=== PATIENT | female | born 1950 | race Caucasian/White ===

== ENCOUNTER 2023-11-26 20:00 | Emergency (ER) | payer OTHER ==
[2023-11-26 20:04] VITALS: BP 162/108; PULSE 71; RESP 16; TEMP 98; BMI 29.0
[2023-11-26 20:56] LABS: BASO % 0.4 % (0-2.0); EOS % 1.4 % (0-4.5); HEMATOCRIT 37.6 % (32.4-45.2); LYMPH % 29.4 % (8-40); MCH 32.5 pg (25.7-33.7); MCHC 34.6 g/dl (32.0-36.0); MEAN CELL VOLUME 93.7 fl (80-96); MEAN PLT VOLUME 8.3 fl (7.5-11.1); MONO % 10.4 % (3.8-10.2); NEUT % 58.4 % (42.8-82.8); PLATELET COUNT 160 10^3/uL (134-434); RBC 4.02 M/mm3 (3.60-5.2); RDW 13.9 % (11.6-15.6); WHITE BLOOD COUNT 4.6 K/mm3 (4.0-10.0)
[2023-11-26 21:02] LABS: INR 1.08 (0.83-1.09); PROTHROMBIN TIME (PATIENT) 12.5 SEC (9.7-13.0)
[2023-11-26 21:05] LABS: ACTIVATED PTT 31.1 SECONDS (25.2-36.5)
[2023-11-26 21:14] LABS: POTASSIUM 3.8 mmol/L (3.5-5.1)
[2023-11-26 21:16] LABS: ALBUMIN 2.9 g/dl (3.4-5.0); CALCIUM 8.6 mg/dL (8.5-10.1)
[2023-11-26 21:20] LABS: CREATININE 0.9 mg/dL (0.55-1.3)
[2023-11-26 21:21] LABS: BILIRUBIN,TOTAL 0.4 mg/dL (0.2-1); TOT PROT 5.7 g/dl (6.4-8.2)
[2023-11-26 21:28] LABS: BLOOD UREA NITROGEN 16.7 mg/dL (7-18)
== END 2023-11-26 21:58 | disposition home or self-care (01) ==
LOC: JER 20:00
DX: R04.0 Epistaxis (principal); R42 Dizziness and giddiness; R53.1 Weakness
CPT/HCPCS: 36415; 80053; 85025; 85610; 85730; 99283-25